=== PATIENT | male | born 1955 | race Caucasian/White ===

== ENCOUNTER 2019-08-17 17:44 | Emergency (ER) | payer OTHER, SELFPAY ==
[2019-08-17] MEDS ORDERED: Bacitracin 1 PK ONE (18:36)
[2019-08-17] MEDS ORDERED: Adacel (T-DAP) 0.5 ML SYRINGE ONE (18:36)
== END 2019-08-17 18:55 | disposition home or self-care (01) ==
LOC: ERS 17:44
DX: S60.416A Abrasion of right little finger, initial encounter (principal); W55.03XA Scratched by cat, initial encounter
CPT/HCPCS: 90471; 90715